=== PATIENT | female | born 2005 | race Caucasian/White ===

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

== ENCOUNTER 2024-03-28 21:01 | Emergency (ER) | payer MEDICAID, OTHER ==
[~2024-03-28] VITALS: Ht 162.6 cm; Wt 63.5 kg
[2024-03-28 21:34] VITALS: O2SAT 97
[2024-03-28 22:02] LABS: CLARITY URINE CLEAR (CLEAR); COLOR URINE YELLOW (YELLOW); GLUCOSE URINE NEGATIVE (NEGATIVE); KETONES URINE 1+ (NEGATIVE); LEUKOCYTE ESTERASE URINE NEGATIVE (NEGATIVE); NITRITE URINE NEGATIVE (NEGATIVE); OCCULT BLOOD URINE NEGATIVE (NEGATIVE); PH URINE 8.5 (4.5-8.0); PROTEIN URINE NEGATIVE (NEGATIVE); SPECIFIC GRAVITY URINE 1.018 (1.005-1.030)
[2024-03-28 22:49] LABS: HEMATOCRIT. 41.1 % (36.0-48.0); HEMOGLOBIN. 13.8 g/dL (12.0-16.0); MEAN CORPUSCULAR HEMOGLOBIN 29.8 pg (28.0-32.0); MEAN CORPUSCULAR HGB CONC 33.6 g/dL (31.0-37.0); MEAN CORPUSCULAR VOLUME 88.9 fL (81.0-99.0); MEAN PLATELET VOLUME 8.7 fl (7.4-10.4); PLATELET 218 x1000/uL (130-400); RED BLOOD CELL COUNT 4.62 mill/uL (4.2-5.4); RED CELL DISTRIBUTION WIDTH 13.7 % (11.6-14.6); WHITE BLOOD COUNT 15.3 x1000/uL (4.5-11.0)
[2024-03-28 22:50] LABS: DIFFERENTIAL COMMENT 1
[2024-03-28 22:59] LABS: CHLORIDE 105 mEq/L (98-107); POTASSIUM 3.7 mEq/L (3.5-5.1); SODIUM 137 mEq/L (136-145)
[2024-03-28 23:00] LABS: CALCIUM 10.3 mg/dL (8.7-10.4); CARBON DIOXIDE 25 mEq/L (21-32)
[2024-03-28 23:05] LABS: CREATININE 0.9 mg/dL (0.6-1.0); GLUCOSE 120 mg/dL (70-105); UREA NITROGEN BLOOD 7 mg/dL (9-23)
[2024-03-28 23:07] LABS: ALANINE AMINOTRANSFERASE 143 IU/L (10-49); ALBUMIN 4.8 g/dL (3.2-4.8); ASPARTATE AMINOTRANSFERASE 339 IU/L (<34); BILIRUBIN TOTAL 3.2 mg/dL (0.1-1.0); PROTEIN TOTAL 7.4 g/dL (6.0-8.3)
[2024-03-28 23:09] LABS: HCG SCREEN NEGATIVE
[2024-03-28 23:16] LABS: PLATELET ESTIMATE NORMAL
[2024-03-29 02:40] VITALS: BP 98/64; PULSE 71; RESP 18; TEMP 98
== END 2024-03-29 03:00 | disposition home or self-care (01) ==
LOC: ER 21:01
DX: R10.9 Unspecified abdominal pain (principal); R11.0 Nausea; R74.01 Elevation of levels of liver transaminase levels
CPT/HCPCS: 36415; 76705; 80048; 80076; 81003; 81025; 83605; 84703; 85025; 99284